=== PATIENT | male | born 1930 | race Hispanic/Latino ===

== ENCOUNTER 2019-12-20 14:45 | Inpatient (IN) | payer SELFPAY ==
[~2019-12-20] VITALS: Ht 157.5 cm; Wt 57.2 kg
--- NOTE | 2019-12-20 14:58 | NUR ---
PT TO ROOM VIA WHEELCHAIR.
--- NOTE | 2019-12-20 15:38 | NUR ---
PT STATES PAIN TO RT SHOULDER 8/10 AT THIS TIME. PT PLEASANT AND COOPERTIVE. DAUGHTER AT BEDSIDE.
[2019-12-20 15:47] LABS: HEMATOCRIT 31.7 % (39.0-50.0); HEMOGLOBIN 10.5 g/dl (14.0-18.0); IMMATURE GRANULOCYTES 0.4 % (0.0-5.0); MEAN CELL VOLUME 102.6 fL CALC (80.0-100.0); MEAN CORPUSCULAR HGB CONC 33.1 g/dL CAL (32.0-36.0); NEUT# 2.49 thou/uL (1.82-7.42); RED BLOOD COUNT 3.09 mill/uL (4.70-6.10); RED CELL DISTRI WIDTH 12.5 % (11.5-15.5)
--- NOTE | 2019-12-20 15:52 | NUR ---
MEDICATED FOR PAIN AND UPDATED PT AND FAMILY ON WAIT TIME AND POC.
[2019-12-20 16:04] LABS: POTASSIUM 5.6 mmol/l (3.5-5.1)
[2019-12-20 16:05] LABS: CREATININE 5.1 mg/dL (0.7-1.3)
--- NOTE | 2019-12-20 16:27 | NUR ---
EDP AT BEDSIDE , UNABLE TO INJECT JOINT. PT AND FAMILY UPDATED ON WAIT TIME D/T LAST MEAL 12NOON
--- NOTE | 2019-12-20 17:42 | NUR ---
PT REPOSITIONED FOR COMFORT, INITIATED IV FLUIDS AND ADDITIONAL PAIN MEDS. WARM BLANKETS APPLIED. PT UPDATED ON WAIT TIME
--- NOTE | 2019-12-20 18:30 | NUR ---
PT RESTING SUPINE IN NO DISTRESS, TOLERATING IVF WELL. UPDATED ON WAIT TIME. DAUGHTER AT BEDSIDE
--- NOTE | 2019-12-20 18:42 | NUR ---
REPORT TO JAMEY BENTLEY
--- NOTE | 2019-12-20 18:53 | NUR ---
RESTING COMFORTABLY. AWAITING PROCEDURE. DAUGHTER AT BEDSIDE.
[2019-12-20 19:21] LABS: ACT PARTIAL THROMBO TIME 31.6 SECONDS (20.0-32.5); ALBUMIN 3.7 g/dL (3.2-5.0); BILIRUBIN, TOTAL 0.4 mg/dL (0.0-1.4); INTERNATIONAL NORMALIZED RATIO 1.1 RATIO (0.7-1.3); PROTHROMBIN TIME 11.4 SECONDS (9.0-12.5); TOTAL PROTEIN 7.2 g/dL (6.3-8.2)
[2019-12-20 19:35] LABS: CPK 51 u/l (52-200)
--- NOTE | 2019-12-20 19:42 | NUR ---
REDUCTION CANCELLED BY DR. OLIVARES AFTER CONSULTING WITH DR. TRUONG.
[2019-12-20 20:06] LABS: URINE BILIRUBIN - DIPSTICK NEGATIVE (NEGATIVE); URINE BLOOD DIPSTICK NEGATIVE (NEGATIVE); URINE COLOR YELLOW; URINE GLUCOSE - DIPSTICK NEGATIVE (NEGATIVE); URINE KETONE NEGATIVE (NEGATIVE); URINE LEUK ESTERASE NEGATIVE (NEGATIVE); URINE NITRITE - DIPSTICK NEGATIVE (Negative); URINE PH 5.5 (4.5-8.0); URINE PROTEIN - DIPSTICK 30 mg/dL (NEG-TRACE); URINE SPECIFIC GRAVITY 1.025; URINE UROBILINOGEN - DIPSTICK 0.2 E.U./dL (0.2)
[2019-12-20 20:12] LABS: URINE RBC 0-2 RBC/hpf (0-5); URINE WBC 0-2 WBC/hpf (0-5)
--- NOTE | 2019-12-20 20:14 | NUR ---
REPORT REC FROM CHANA CONCEPCION
--- NOTE | 2019-12-20 20:18 | NUR ---
Admission Note Report Given to: PEDRO PABLO BELLO Transported by: Wheelchair X Stretcher Transported with: X Nurse Transporter X Patent IV O2 X Hand Gluer And Slicer Location: ICU X MS2
--- NOTE | 2019-12-20 20:20 | NUR ---
AWAITING ADMISSION ORDERS FROM ATTENDING MD.
--- NOTE | 2019-12-20 20:21 | NUR ---
100 ML OF CLEAR YELLOW URINE EMPTIED FROM URINAL.
--- NOTE | 2019-12-20 20:30 | NUR ---
PT ARRVIED TO MS VIA STRETCHER ACCOMPANIED BY CHANA CONCEPCION. PT A&O X3. EXCERTIONAL SOB NOTED, O2 VIA NC @2L PLACED ON PT. PT INITIALLY C/O OF NAUSEA BUT STATES THAT SINCE HE HAS THE O2 IN PLACE IT HAS SUBSIDED. PER PT HE USED A WALKER AT HOME IN [place] TO AMBULATE BUT HAS CURRENTLY BEEN USING A CANE SINCE LIVING WITH HIS DAUGHTER. STATES HE HAD A FALL A FEW WEEKS AGO WHILE LIVING IN [place] AND HAS STRUGGLED WITH DISCOMFORT SINCE. LILLIAM HOSES PLACED ON PT. ORIENTED PT TO ROOM. INSTRUCTIONS GIVEN TO PRESS CALL LIGHT IF HE NEEDED TO GET OUT OF BED. PT VERBALIZED UNDERSTANDING. ASSESSMENT COMPLETED.DISCUSSED POC. CALL LIGHT IN REACH. CONTINUE TO MONITOR.
--- NOTE | 2019-12-20 20:30 | NUR ---
BY STRETCHER TO ROOM 261.
[2019-12-20 21:08] VITALS: BP 143/65
--- NOTE | 2019-12-20 23:11 | NUR ---
PT SLEEPING IN BED. NO DISTRESS NOTED. CONTINUE TO MONITOR.
[2019-12-20 23:27] VITALS: BP 120/58
[2019-12-21 03:30] VITALS: BP 132/70
[2019-12-21 05:27] LABS: ALBUMIN 3.1 g/dL (3.2-5.0); CREATININE 4.7 mg/dL (0.7-1.3)
[2019-12-21 08:45] VITALS: BP 184/71
--- NOTE | 2019-12-21 08:45 | NUR ---
ASSESSMENT IS COMPLTED: ATTEMPTED TO USE THE LANGUAGE LINE ([id number]) PT 1ST ASKED "WHAT AM I SUPPOSED TO ASK" INQUIRED IF PT WAS HAVING PAIN, WOULD NOT ANSWER THE LANGUAGE LINE. HR IS REG,PULSES ARE STRONG X4. ABD IS SOFT WITH ACTIVE BS. BREATH SOUNDS ARE CLEAR., BILATERALLY. R ARM IN SLING. INFORMED PT WITH LANGUAGE LINE RE: MEDICATIONS DUE TO LABS BEING LOW, AND ASSESSMENT AND INTRODUCING MYSELF. CONTINUE TO OBSERVE AND MONITOR.
[2019-12-21 11:15] VITALS: BP 153/66
--- NOTE | 2019-12-21 11:30 | NUR ---
DR NGUYEN AND BLESSING PAULINO. INFORMED DR FINCH RE: CONSULTATION. ORDERS PLACED IN THE COMPUTER FOR LABS AND MEDS
--- NOTE | 2019-12-21 12:00 | NUR ---
PT IS RELAXING IN BED NO DISTRESS NOTED. IV SITE IS FREE FROM REDNESS OR EDEMA.
--- NOTE | 2019-12-21 14:02 | NUR ---
LM FOR PT'S DAUGHTER RICHAR, TRYING TO OBTAIN MED REC/MEDICATION HISTORY
[2019-12-21] MEDS ORDERED: HYDROCHLOROT12.5 MG PO (14:19)
[2019-12-21] MEDS ORDERED: FEBUXOSTAT80 MG PO (14:21)
[2019-12-21] MEDS ORDERED: LOSARTAN POTASS50 MG PO (14:22)
[2019-12-21] MEDS ORDERED: ACTOS30 MG PO (14:31)
--- NOTE | 2019-12-21 14:33 | NUR ---
FAMILY CALLED AND INQUIRED ABOUT IF ANYONE HAD CALLED THEY HAD A MISSED CALL AT 1400
[2019-12-21 15:05] VITALS: BP 133/51
--- NOTE | 2019-12-21 16:00 | NUR ---
PT IS RELAXING IN BED WITH NO DISTRESS NOTED. IV SITE IS FREE FROM REDNESS OR EDEMA.
[2019-12-21 18:21] VITALS: BP 151/75
--- NOTE | 2019-12-21 19:00 | NUR ---
RECEIVED REPORT FROM NURSE NEGRO, PATIENT CURRENTLY RESTING IN BED, WATCHING TV, EVEN UNLABORED BREATHING CALL LIGHT AT REACH.
--- NOTE | 2019-12-21 20:00 | NUR ---
PATIENET ALERT ORIENTED, SPANSIH SPEAKING ONLY WITH ONGOING IV OF D5 1/2 NS @ 100CC/HR AND D5 SODIUM BICARBONATE INFUSING WELL ON LAC REMAINS ON TEL SR 66, C/O PAIN RT SHOULDER PS 10/11, HOOKED TO O2 @ 2LPM VIA NC WITH EVEN UNLABORED BREATHING, REINFORCED ON THE NEED TO CALL FOR ASSISTANCE DURING TRANSFER.
--- NOTE | 2019-12-21 20:22 | NUR ---
PATIENT ALERT ORIENETED [place] SPEAKING ONLY WITH ONGOING IV D5 1/2 NS @ 100CC/HR INFUSING WELL AND D5 SODIUM BICARBONATE@ 75CC/HR INFUSING WELL ON LAC, REMAINS ON TELE SR 73, DENIES PAIN OR DISCOMFORTS AT THIS TIME STATED MUCH BETTER SINCE THIS MORNING, LB, 12/18 REFUSED MOM AT THIS TIME, OFFERED PRUN JUICE.CALL LIGHT AT REACH.
--- NOTE | 2019-12-21 23:29 | NUR ---
PATIENT APPEARS TO BE SLEEPING WITH EYES CLOSED, REMAINS ON O2 @ 2LPM WITH EVEN UNLABORED BREATHING CALL LIGHT AT REACH.
[2019-12-21 23:32] VITALS: BP 137/76
[2019-12-22 03:53] VITALS: BP 120/66
--- NOTE | 2019-12-22 03:55 | NUR ---
PATIENT SLEEPING WITH EYES CLOSED. WITH EVEN UNLABORD BREATHING CALL, REMAINS ON TELE SR 74, CALL LIGHT AT REACH.
[2019-12-22 05:43] LABS: HEMATOCRIT 26.4 % (39.0-50.0); HEMOGLOBIN 8.9 g/dl (14.0-18.0); MEAN CELL VOLUME 101.9 fL CALC (80.0-100.0); MEAN CORPUSCULAR HGB 34.4 pG CALC (26.0-32.0); MEAN CORPUSCULAR HGB CONC 33.7 g/dL CAL (32.0-36.0); RED BLOOD COUNT 2.59 mill/uL (4.70-6.10); RED CELL DISTRI WIDTH 12.4 % (11.5-15.5)
[2019-12-22 06:03] LABS: ALBUMIN 2.7 g/dL (3.2-5.0); BILIRUBIN, TOTAL 0.3 mg/dL (0.0-1.4); POTASSIUM 4.9 mmol/l (3.5-5.1)
[2019-12-22 06:07] LABS: TOTAL PROTEIN 5.5 g/dL (6.3-8.2)
--- NOTE | 2019-12-22 06:11 | NUR ---
RECEIVED A PHONE CALL FROM LAB ABOUT CRITICALLY HIGH BUN 83, CALLED DR. CUENCA @ 0748 AND MADE AWARE OF THE TRAND NO ORDERS MADE AT THIS TIME.
[2019-12-22 07:25] VITALS: BP 134/71
--- NOTE | 2019-12-22 07:52 | NUR ---
PT IS AWAKE, ALERT, ORIENTED, SPEAKS PAKISTANI ONLY. PT DANGLING IN BED WITH BREAKFAST IN FRONT ON HIM. PT PROVIDED TYLENOL X 2 FOR RELIEF OF PAIN TO KNEES. SLING IN PLACE TO RIGHT ARM.
--- NOTE | 2019-12-22 09:02 | NUR ---
PT SEEN BY DR NGUYEN THIS MORNING. PT WITH SLIGHT WHEEZE HEARD BY . PT ADVISED TO LET NURSING KNOW IF HE BECOMES SHORT OF BREATH.
[2019-12-22 12:00] VITALS: BP 140/66
--- NOTE | 2019-12-22 12:25 | NUR ---
PT PROVIDED VENTOLIN INHALER ORDERED, RESTS IN THE BED IN NO DISTRESS.
[2019-12-22 15:49] VITALS: BP 143/65
--- NOTE | 2019-12-22 16:22 | NUR ---
PT REMAINS AT REST IN THE BED, NO DISTRESS NOTED, NO SHORTNESS OF BREATH. FAMILY CALLED AND WAS UPDATED ON RESULTS AND PLAN OF CARE.
--- NOTE | 2019-12-22 18:33 | NUR ---
PT HAS REMAINED BEFORE TODAY, NO COMPLAINTS OR EVIDENCE OF DISTRESS. PT DOES NOT USUALLY EAT HIS MEAL IT ARRIVES, WAITS A WHILE FIRST.
--- NOTE | 2019-12-22 19:15 | NUR ---
ASSESSEMENT COMPLETED. NO DISTRESS NOTED; O2 INFUSING PER NC PER ORDER. PT. REPORTS MILD PAIN TO RIGHT KNEE AND WARM PACK APPLIED. IV SITE PATENT AND ORDERED IVF INFUSING @KVO. WARM PRUNE JUICE GIVEN TO ASSIST WITH BM. DENIES FURTHER NEEDS. CALL LIGHT IS IN REACH.
[2019-12-22 19:33] VITALS: BP 149/70
--- NOTE | 2019-12-22 21:09 | NUR ---
PT. RESTING IN BED WATCHING TV. C/O RIGHT KNEE PAIN AND MEDICATED WITH ORDERED PRN TYLENOL, WILL REASSESS. URINAL EMPTIED
[2019-12-22 23:24] VITALS: BP 151/69
--- NOTE | 2019-12-22 23:24 | NUR ---
PT. RESTING IN BED WITH NO DISTRESS NOTED; DENIES NEEDS. CALL LIGHT IS IN REACH. VSS.
--- NOTE | 2019-12-23 02:30 | NUR ---
PT. C/O RIGHT KNEE PAIN AND MEDICATED WITH ORDERED PRN TYLENOL AND WARM PACK APPLIED.
--- NOTE | 2019-12-23 04:41 | NUR ---
PATIENT RESTING IN BED WITH O2 VIA NASAL CANNULA IN PLACE. TELE MONITOR IN PLACE. PATIENT IS ALERT AND ORIENTEDX3. REMAINS ON ISOLATION IN NEG PRESSURE ROOM. STILL AWAITING COVID 19 SWAB RESULTS. LAB WORK DRAWN WITHOUT ANY DIFFICULTY FROM RIGHT UPPER CHEST PORT-GOOD BLOOD RETURN. FLUSHED PER PROTOCOL WITH NS AND HEP JEMMA. SAFETY PRECAUTIONS REINFORCED. CALL LIGHT IN REACH. WILL CONT TO MONITOR.
[2019-12-23 04:50] VITALS: BP 126/67
[2019-12-23 05:42] LABS: HEMATOCRIT 27.3 % (39.0-50.0); HEMOGLOBIN 9.1 g/dl (14.0-18.0); IMMATURE GRANULOCYTES 0.2 % (0.0-5.0); MEAN CELL VOLUME 103.4 fL CALC (80.0-100.0); MEAN CORPUSCULAR HGB 34.5 pG CALC (26.0-32.0); MEAN CORPUSCULAR HGB CONC 33.3 g/dL CAL (32.0-36.0); NEUT# 3.52 thou/uL (1.82-7.42); RED BLOOD COUNT 2.64 mill/uL (4.70-6.10); RED CELL DISTRI WIDTH 12.7 % (11.5-15.5)
[2019-12-23 05:58] LABS: BILIRUBIN, TOTAL 0.4 mg/dL (0.0-1.4); CREATININE 3.5 mg/dL (0.7-1.3); TOTAL PROTEIN 5.8 g/dL (6.3-8.2)
[2019-12-23 05:59] LABS: ALBUMIN 2.9 g/dL (3.2-5.0)
--- NOTE | 2019-12-23 06:02 | NUR ---
SCHEDULED INHALOR GIVEN. NO DISTRESS NOTED. RE-ADJUSTED SLING TO RIGHT ARRM. DENIES NEEDS. CALL LIGHT IS IN REACH.
[2019-12-23 06:09] LABS: POTASSIUM 6.1 mmol/l (3.5-5.1)
--- NOTE | 2019-12-23 06:30 | NUR ---
SPOKE WITH DR. CAMACHO AND NOTIFIED HIM OF ELEVATED POTASSIUM LEVEL, NO NEW ORDERS RECEIVED. TOLD THIS PIERCER TO CALL DR. FINCH AND THIS PIERCER CALLED WITH NO ANSWER.
[2019-12-23 07:31] VITALS: BP 123/62
--- NOTE | 2019-12-23 07:49 | NUR ---
PT AWAKE, ALERT, EATING BREAKFAST NOW. PT PROVIDED KAEXELATE ORDERED, PER ELEVATED POTASSIUM OF 6.1 THIS MORNING.
[2019-12-23 10:35] VITALS: BP 179/73
--- NOTE | 2019-12-23 10:54 | NUR ---
PT SEEN BY DR NGUYEN AND DANIELLE THIS MORNING. MEDS GIVEN ORDERED FOR ELEVATED POTASSIUM. PT HAS BEEN TO RADIOLOGY AND BACK.
[2019-12-23 11:32] VITALS: BP 142/65
--- NOTE | 2019-12-23 14:56 | NUR ---
IV CHANGED OUT PER TIME LIMIT. PT REMAINS AT REST IN THE BED, NO DISTRESS.
[2019-12-23 15:17] VITALS: BP 137/65
[2019-12-23 17:47] LABS: CREATININE 3.6 mg/dL (0.7-1.3)
[2019-12-23 17:48] LABS: POTASSIUM 5.3 mmol/l (3.5-5.1)
[2019-12-23 19:27] VITALS: BP 134/56
--- NOTE | 2019-12-23 20:16 | NUR ---
ASSESSMENT COMPLETED. NO DISTRESS NOTED; DENIES NEEDS/PAIN AT THIS TIME. UPDATED ON POC; VERBALIZES UNDERSTANDING. IV SITE PATENT AND ORDERED IVF INFUSING WELL. ADJUSTED SLING TO RIGHT ARM AND RE-EDUCATED ON NEED TO KEEP ARM IN SLING. ENCOURAGED TO CALL FOR ANY NEEDS. CALL LIGHT IS IN REACH.
--- NOTE | 2019-12-23 23:00 | NUR ---
PT. AWAKENED FOR SCHEDULED INHALOR AND ADMINISTERED AT THIS TIME. DENIES NEEDS/PAIN. ENCOURAGED TO CALL FOR ANY NEEDS. URINAL EMPTIED. CALL LIGHT IS IN REACH.
[2019-12-24] VITALS (7 sets, daily range): BP systolic 109–125; BP diastolic 51–64
--- NOTE | 2019-12-24 02:52 | NUR ---
RESTING IN BED WITH NO DISTRESS NOTED; RE-ADJUSTED SLING TO RIGHT ARM. DENIES NEEDS/PAIN. URINAL EMPTIED. ENCOURAGED TO CALL FOR ANY NEEDS.
[2019-12-24 04:43] LABS: HEMATOCRIT 27.7 % (39.0-50.0); HEMOGLOBIN 9.1 g/dl (14.0-18.0); MEAN CELL VOLUME 103.4 fL CALC (80.0-100.0); MEAN CORPUSCULAR HGB CONC 32.9 g/dL CAL (32.0-36.0); RED BLOOD COUNT 2.68 mill/uL (4.70-6.10); RED CELL DISTRI WIDTH 12.4 % (11.5-15.5)
[2019-12-24 05:03] LABS: ALBUMIN 3.1 g/dL (3.2-5.0); BILIRUBIN, TOTAL 0.4 mg/dL (0.0-1.4); CREATININE 3.8 mg/dL (0.7-1.3); TOTAL PROTEIN 6.1 g/dL (6.3-8.2)
[2019-12-24 05:05] LABS: POTASSIUM 5.3 mmol/l (3.5-5.1)
--- NOTE | 2019-12-24 05:41 | NUR ---
PT. SITTING UP IN BED WITH NO DISTRESS NOTED. NO BM THROUGHOUT THE NIGHT OFFERED LAXATIVE AND PT. DECLINES. URINAL EMPTIED AND COFFEE PROVIDED. CALL LIGHT IS IN REACH.
--- NOTE | 2019-12-24 09:23 | NUR ---
PT SEEN AWAKE, ALERT, ORIENTED X 3. LUNGS CLEAR, RA. PT STATES THAT PAIN IN RIGHT KNEE IS IMPROVED. BM YESTERDAY. NAD.
--- NOTE | 2019-12-24 14:06 | NUR ---
PT SEEN BY DR NGUYEN AND DANIELLE TODAY. IVF RETURNED TO RATE OF 100 ML/HR. LUNGS CLEAR, NO CHF. PT REMAINS BEFORE, NO COMPLAINTS.
--- NOTE | 2019-12-24 16:03 | NUR ---
FAMILY WAS UPDATED BY PHONE. PT REMAINS AT REST IN THE BED, NO COMPLAINTS AND NO EVIDENCE OF DISTRESS.
--- NOTE | 2019-12-24 19:00 | NUR ---
1900-Pleasant 89 y/o male lying in bed. No s/s of distress. Denies pain or concerns at this time. Assessment complete. Assessment unremarkable. Call light and phone within reach. Bed low and locked. Pt stable. Will continue to monitor.
--- NOTE | 2019-12-24 23:15 | NUR ---
2315-Pt lying in bed asleep. No s/s of distress. Bed low and locked. Call light and phone within reach. Pt stable. Will continue to monitor.
--- NOTE | 2019-12-25 03:15 | NUR ---
0315-Pt lying in bed, stable. Eyes closed and sleeping. No s/s of distress. Bed low and locked. Call light and phone within reach. Pt stable. Will continue to monitor.
[2019-12-25 03:33] VITALS: BP 104/48
--- NOTE | 2019-12-25 06:24 | NUR ---
0624-Pt lying in bed resting. No s/s of distress. Bed low and locked. Call light within reach. Pt stable. Will continue to monitor.
[2019-12-25 07:28] VITALS: BP 120/58
--- NOTE | 2019-12-25 07:28 | NUR ---
PT SITTING IN BED WATCHING TV. A&O X3. NO DISTRESS NOTED. SLING IN PLACE TO RT SHOULDER, PT REPORTS THAT HIS PAIN HAS BEEN BETTER SINCE YESTERDAY. O2 VIA NC @2L IN PLACE. NO OTHER NEEDS AT THIS TIME. ASSESSMENT COMPLETED. DISCUSSED POC. CALL LIGHT IN REACH. CONTINUE TO MONITOR.
--- NOTE | 2019-12-25 10:40 | NUR ---
PT SITTING IN BED WATCHING TV. NO DISTRESS NOTED. NO OTHER NEEDS AT THIS TIME. CALL LIGHT IN REACH CONTINUE TO MONITOR.
[2019-12-25 10:49] VITALS: BP 115/48
[2019-12-25 12:48] LABS: ALBUMIN 2.9 g/dL (3.2-5.0); BILIRUBIN, TOTAL 0.3 mg/dL (0.0-1.4); CREATININE 3.5 mg/dL (0.7-1.3); POTASSIUM 4.8 mmol/l (3.5-5.1); TOTAL PROTEIN 5.8 g/dL (6.3-8.2)
--- NOTE | 2019-12-25 12:54 | NUR ---
CRITICAL RESULT OF BUN 82 REC FROM [facility]. LEVI FUNK NOTIFIED. LEVI AND AWARE OF TREND
--- NOTE | 2019-12-25 16:21 | NUR ---
PT SITTING IN BED. NO DISTRESS NOTED. NO NEEDS AT THIS TIME. CALL LIGHT IN REACH. CONTINUE TO MONITOR.
[2019-12-25 16:36] VITALS: BP 117/56
[2019-12-25 18:52] VITALS: BP 137/66
--- NOTE | 2019-12-25 20:00 | NUR ---
PATIENT SITTING ON THE SIDE OF THE BED. PATIENT IS AWAKE ALERT AND ORIENTEDX3. PATIENT IS MOSTLY [place] SPEAKING. 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 PATIENT C/O PAIN TO RIGHT KNEE AND RIGHT SHOULDER-SLING IN PLACE TO RIGHT SHOULDER. CMS TO FINGERS WNL. MEDICATED WITH TYLENOL 650MG PO FOR PAIN. TELE MONITOR IN PLACE. VOIDING QS IN URINAL. LUNGS ARE CLEAR. NO PEERIPHERAL EDEMA NOTED. TEDS IN PLACE. IV SITE TO RIGHT FOREARM INTACT WITH IVF PATENT AND INFUSING ORDERED. SAFETY PRECAUTIONS REINFORCED. CALL LIGHT IN REACH. WILL CONT TO MONITOR.
[2019-12-25 23:19] VITALS: BP 114/53
--- NOTE | 2019-12-26 00:21 | NUR ---
PATIENT RESTING IN BED-APPEARS SLEEPING AT THIS TIME WITH EYES CLOSED. RESP ARE EVEN AND UNLABORED. TELE MONITOR IN PLACE. CALL LIGHT IN REACH. WILL CONT TO MONITOR.
--- NOTE | 2019-12-26 03:55 | NUR ---
PATIENT RESTING IN BED WITH HOB ELEVATED AND EYES CLOSED. RESP ARE EVEN AND UNLABORED. IVF PATENT AND INFUSING VIA RIGHT FOREARM AT 100CC/HR. SLING IN PLACE TO LUE. TELE MONITOR IN PLACE. CALL LIGHT IN REACH. WILL CONT TO MONITOR.
[2019-12-26 04:05] VITALS: BP 116/52
[2019-12-26 04:47] LABS: HEMATOCRIT 25.4 % (39.0-50.0); HEMOGLOBIN 8.4 g/dl (14.0-18.0); MEAN CELL VOLUME 103.3 fL CALC (80.0-100.0); MEAN CORPUSCULAR HGB 34.1 pG CALC (26.0-32.0); MEAN CORPUSCULAR HGB CONC 33.1 g/dL CAL (32.0-36.0); RED BLOOD COUNT 2.46 mill/uL (4.70-6.10); RED CELL DISTRI WIDTH 12.1 % (11.5-15.5)
[2019-12-26 05:00] LABS: ALBUMIN 2.6 g/dL (3.2-5.0); BILIRUBIN, TOTAL 0.2 mg/dL (0.0-1.4); CREATININE 3.5 mg/dL (0.7-1.3); POTASSIUM 4.4 mmol/l (3.5-5.1); TOTAL PROTEIN 5.5 g/dL (6.3-8.2)
--- NOTE | 2019-12-26 06:38 | NUR ---
DR. FITZPATRICK NOTIFIED OF CRITICAL LABS-BUN-90. NO NEW ORDERS RECEIVED. WILL CONT TO MONITOR.
[2019-12-26 07:29] VITALS: BP 112/53
--- NOTE | 2019-12-26 07:29 | NUR ---
PT SLEEPING IN BED. AWAKENED TO COMPLETE ASSESSMENT. A&O X3. NO DISTRESS NOTED. O2 VIA NC @2L IN PLACE. PT DENIES ANY PAIN OR NEEDS AT THIS TIME. ASSESSMENT COMPLETED. DISCUSSED POC. CALL LIGHT IN REACH. CONTINUE TO MONITOR.
--- NOTE | 2019-12-26 10:40 | NUR ---
PT SITTING ON THE SIDE OF THE BED. NO DISTRESS OR NEEDS AT THIS TIME. CALL LIGHT IN REACH. CONTINUE TO MONITOR
[2019-12-26 10:41] VITALS: BP 153/70
--- NOTE | 2019-12-26 13:30 | NUR ---
PT SITTING IN BED WATCHING TV. DENIES ANY PAIN AT THIS TIME. NO OTHER NEEDS AT THIS TIME. CALL LIGHT IN REACH. CONTINUE TO MONITOR.
[2019-12-26 15:53] VITALS: BP 117/56
[2019-12-26 19:25] VITALS: BP 140/72
--- NOTE | 2019-12-26 19:30 | NUR ---
PATIENT SITTING UP ON THE SIDE OF THE BED-FINISHING HIS DINNER-APPETITE IS GOOD. PATIENT IS MOSTLY KOREAN SPEAKING. RACHEL SAP ABAP DEVELOPER AT BEDSIDE TO TRANSLATE. AWAKE ALERT AND ORIENTEDX3 WITH NO COMPLAINTS OR CONCERNS AT THIS TIME. SLING TO RIGHT UE-CMS TO FINGERS WNL. TELE MONITOR IN PLACE. IVF PATENT AND INFUSING VIA RIGHT FOREARM SITE AT 100CC/HR. SITE APPEARS HEALTHY AT THIS TIME. MIN ASSIST TO BR-STEADY ON HIS FEET. SAFETY PRECAUTIONS REINFORCED. INSTRUCTED TO CALL FOR ASSIST WHEN HE IS FINISHED. CALL LIGHT IN REACH. WILL CONT TO MONITOR
--- NOTE | 2019-12-26 22:35 | NUR ---
PATIENT APPEARS SLEEPING AT THIS TIME WITH HOB ELEVATED AND EYES CLOSED. RESPS ARE EVEN AND UNLABORED. IVF PATENT AND INFUSING VIA RIGHT FOREARM SITE AT 100CC/HR. SITE REMAINS HEALTHY. TELE MONITOR IN PLACE. CALL LIGHT IN REACH. WILL CONT TO MONITOR.
[2019-12-27 00:06] VITALS: BP 156/77
[2019-12-27 03:27] VITALS: BP 135/73
--- NOTE | 2019-12-27 03:55 | NUR ---
PATIENT APPEARS SLEEPING IN BED POSITIONED AND LEFT SIDE WITH EYES CLOSED. TELE MONITOR IN PLACE. IVF PATENT AND INFUSING VIA RIGHT FOREARM SITE ORDERED AT 100CC/HR, CALL LIGHT IN REACH. WILL CONT TO MONITOR.
[2019-12-27 07:26] LABS: ALBUMIN 2.9 g/dL (3.2-5.0); CREATININE 3.4 mg/dL (0.7-1.3); POTASSIUM 4.3 mmol/l (3.5-5.1)
[2019-12-27 07:58] VITALS: BP 164/81
--- NOTE | 2019-12-27 09:28 | NUR ---
PT AWAKE, ALERT, CHINESE SPEAKING. LUNGS DECREASED TO LEFT SIDE, 2 LPM NC. PT WITH SLIGHTLY LABORED BREATHING TODAY. LEGS WITH 2+ EDEMA BILATERALLY. BM TODAY.
[2019-12-27 11:26] VITALS: BP 155/81
--- NOTE | 2019-12-27 13:15 | NUR ---
PT BEFORE, RESTS IN THE BED IN NO ACUTE DISTRESS. PT CONTINUES TO LABOR SLIGHTLY WITH ACTIVITY.
[2019-12-27 15:35] VITALS: BP 151/65
--- NOTE | 2019-12-27 16:42 | NUR ---
PT RECEIVED ANTIBIOTICS, CONTINUES TO REST IN THE BED BEFORE. PT USES BSC, HAS HAD AT LEAST 2 BMs TODAY.
[2019-12-27 19:10] VITALS: BP 131/66
--- NOTE | 2019-12-27 19:30 | NUR ---
PATIENT RESTING IN BED AT THIS TIME-NO COMPLAINTS AT THIS TIME. TELE MONITOR IN PLACE. SALINE LOCK TO RIGHT FOREARM INTACT AND APPEARS HEALTHY AT THIS TIME. SAFETY PRECAUTIONS REINFORCED. CALL LIGHT IN REACH. WILL CONT TO MONITOR.
--- NOTE | 2019-12-27 21:08 | NUR ---
PATIENT SITTING UP IN BED AT THIS TIME WATCHING TV. AWAKE ALERT AND ORIENTEDX3. CITIZEN OF [place] SPEAKING ONLY WITH CRYSTAL FOR TRANSLATION. PATIENT WITH NO COMPLAINTS OR CONCERNS AT THIS TIME. DENIES ANY PAIN. SLING TO RIGHT UE IN PLACE. CMS TO RIGHT FINGERS WNL. IV SITE TO RIGHT FOREARM INTACT AND APPEARS HEALTHY AT THIS TIME. TELE MONITOR IN PLACE. ENCOURAGED USE OF IS Q1H WHILE AWAKE. VOIDING YELLOW URINE IN URINAL. HAD BM TODAY. SAFETY PRECAUTIONS REINOFRCED. CALL LIGHT IN REACH. WILL CONT TO MONITOR.
[2019-12-28] VITALS (7 sets, daily range): BP systolic 131–158; BP diastolic 62–75
--- NOTE | 2019-12-28 00:45 | NUR ---
PATIENT APPEARS SLEEPING WITH HOB ELEVATED AND EYES CLOSED. RESPS ARE EVEN AND DUNLABORED. TELE MONITOR IN PLACE. CALL LIGHT IN REACH. WILL CONT TO MONITOR.
--- NOTE | 2019-12-28 03:16 | NUR ---
PATIENT RESTING IN BED WITH HOB ELEVATED AND EYES CLOSED. RESPS ARE EVEN AND UNLABORED. TELE MONITOR IN PLACE. IV SITE TO RIGHT FOREARM INTACT. SLING TO RIGHT UE IN PLACE. CALL LIGHT IN REACH. WILL CONT TO MONITOR.
[2019-12-28 05:24] LABS: HEMATOCRIT 28.6 % (39.0-50.0); HEMOGLOBIN 9.5 g/dl (14.0-18.0); MEAN CELL VOLUME 103.2 fL CALC (80.0-100.0); MEAN CORPUSCULAR HGB 34.3 pG CALC (26.0-32.0); MEAN CORPUSCULAR HGB CONC 33.2 g/dL CAL (32.0-36.0); RED BLOOD COUNT 2.77 mill/uL (4.70-6.10); RED CELL DISTRI WIDTH 12.5 % (11.5-15.5)
[2019-12-28 05:41] LABS: ALBUMIN 2.8 g/dL (3.2-5.0); CREATININE 3.3 mg/dL (0.7-1.3); POTASSIUM 4.5 mmol/l (3.5-5.1); TOTAL PROTEIN 5.6 g/dL (6.3-8.2)
[2019-12-28 05:52] LABS: BILIRUBIN, TOTAL 0.5 mg/dL (0.0-1.4)
--- NOTE | 2019-12-28 09:45 | NUR ---
PT HAS BEEN SHOWERED THIS MORNING AND HAS BEEN OOB IN CHAIR SINCE BEFORE BREAKFAST. PEDAL EDEMA AT 2+. LUNGS CLEAR, 2 LPM PRN.
--- NOTE | 2019-12-28 11:51 | NUR ---
PT BACK INTO BED AFTER SEVERAL HOURS IN CHAIR. PT SEEN BY DR NGUYEN TODAY, ANTICIPATED DISCHARGE TO HOME TOMORROW. DR ALANIZ CAME TO SEE PT, SAID THAT HE WAS FINE WITH PT BEING DISCHARGED ANYTIME.
--- NOTE | 2019-12-28 14:34 | NUR ---
FAMILY UPDATED BY PHONE, PLEASED THAT HE MAY BE DISCHARGED TOMORROW.
--- NOTE | 2019-12-28 19:30 | NUR ---
PATIENT RESTING IN BED WITH HOB ELEVATED AND EYES CLOSED. RESPS ARE EVEN AND UNLABORED AT THIS TIME. TELE MONITOR IN PLACE. SALINE LOCK INTACT TO RIGHT FOREARM SITE. CALL LIGHT IN REACH. WILL CONT TO MONITOR.
--- NOTE | 2019-12-28 21:38 | NUR ---
PATIENT SITTING UP IN CHAIR. FLAGYL HUNG ORDERED VIA RIGHT FOREARM SITE. CALL LIGHT IN REACH. WILL CONT TO MONITOR.
[2019-12-29] VITALS: BP 137/70
--- NOTE | 2019-12-29 00:54 | NUR ---
PATIENT APPEARS SLEEPING WITH HOB ELEVATED AND EYES CLOSED. RESPS AE EVEN AND UNLABORED. TELE MONITOR IN PLACE. SLING TO RIGHT ARM INTACT. CALL LIGHT IN REACH. WILL CONT TO MONITOR.
--- NOTE | 2019-12-29 04:02 | NUR ---
RESTING IN BED AT THIS TIME. NO COMPLAINTS AT THIS TIME. TELE MONITOR IN PLACE. VOIDING SHAKEEL URINE IN URINAL. SAFETY PRECAUTIONS REINFORCED. CALL LIGHT IN REACH. WILL CONT TO MONITOR.
[2019-12-29 05:15] VITALS: BP 128/56
[2019-12-29 05:31] LABS: ALBUMIN 2.5 g/dL (3.2-5.0); BILIRUBIN, TOTAL 0.5 mg/dL (0.0-1.4); CREATININE 3.2 mg/dL (0.7-1.3); POTASSIUM 4.8 mmol/l (3.5-5.1); TOTAL PROTEIN 5.1 g/dL (6.3-8.2)
--- NOTE | 2019-12-29 07:15 | NUR ---
CHANGE OF SHIFT REPORT RECEIVED FROM JAMEY PARRA. PT IN ROOM USING URINAL. PT WITH LANGUAGE BARRIER. PT ALBE TO MAKE SIMPLE NEEDS KNOWN. PT DENIES PAIN. AFEBRILE. COMPLIANCE MANAGER WILL CONTINUE TO MONITOR
[2019-12-29 07:32] VITALS: BP 123/61
[2019-12-29 10:35] VITALS: BP 145/75
[2019-12-29] MEDS ORDERED: AMLODIPINE BESYL5 MG PO (10:35)
[2019-12-29] MEDS ORDERED: VITAMIN D2000 UNI2 PO (10:35)
[2019-12-29] MEDS ORDERED: OMNICEF300 MG PO (10:46)
[2019-12-29] MEDS ORDERED: SODIUM BICARBI650 MG PO (11:53)
--- NOTE | 2019-12-29 12:00 | NUR ---
PT NOTIFIED THAT HE WILL BE GOING HOME TODAY. CHIEF INVESTIGATOR CALLED TO SPEAK WITH HAIM Mcgovern. NO ANSWER. MESSAGE LEFT WITH CHIEF INVESTIGATOR'S NAME AND CALL BACK NUMBER
--- NOTE | 2019-12-29 13:00 | NUR ---
ALIA,PCG CALLED COMMERCIAL CREDIT SPECIALIST BACK. DISCHARGE ORDERS REVIEWED WITH PCG. NEW PRESCRIPTIONS REVIEWED. DISCONTINUED MEDS REVIEWED. EDUCATION PROVIDED ON AVOIDING MEDS THAT CAN AGGRAVATE KIDNEY INJURY LIKE NSAIDS. ALIA STATES HE WILL BE PICKING UP PT BETWEEN 1330 AND 1400. PT NOTIFIED
--- NOTE | 2019-12-29 14:04 | NUR ---
Discharge instructions given. Patient verbalizes understanding of same. Discharged in stable condition via Wheelchair to Home with family. All belongings sent with pt.
== END 2019-12-29 14:04 | disposition home or self-care (01) | DRG 682 ==
LOC: ED 14:45 → ED-I 19:15 → ED 19:35 → MS2 19:36
PROVIDERS: Family Medicine; Internal Medicine Nephrology; Nurse Practitioner Family; ADMIT Internal Medicine; ATTEND Internal Medicine
DX: N17.9 Acute kidney failure, unspecified (principal); J18.9 Pneumonia, unspecified organism; E87.2 Acidosis; E87.1 Hypo-osmolality and hyponatremia; T50.2X5A Adverse effect of carbonic-anhydrase inhibitors, benzothiadiazides and other diuretics, initial encounter; T46.5X5A Adverse effect of other antihypertensive drugs, initial encounter; E87.5 Hyperkalemia; E86.0 Dehydration; E11.22 Type 2 diabetes mellitus with diabetic chronic kidney disease; I12.9 Hypertensive chronic kidney disease with stage 1 through stage 4 chronic kidney disease, or unspecified chronic kidney disease; N18.9 Chronic kidney disease, unspecified; S46.001A Unspecified injury of muscle(s) and tendon(s) of the rotator cuff of right shoulder, initial encounter; E86.9 Volume depletion, unspecified; D64.9 Anemia, unspecified; E83.39 Other disorders of phosphorus metabolism; E55.9 Vitamin D deficiency, unspecified; M10.061 Idiopathic gout, right knee; W19.XXXA Unspecified fall, initial encounter
CPT/HCPCS: J0692; Q5106 EC